=== PATIENT | male | born 1955 | race Caucasian/White ===

== ENCOUNTER 2017-10-11 12:19 | Inpatient (IN) | payer BC ==
[~2017-10-11] VITALS: Ht 172.7 cm; Wt 70.3 kg
[~2017-10-11 12:19] MED LIST: ALBU17AE3 INH; ALPR0.25 PO; ALPR0.254 PO; IBUP-30 PO; MULT-35 PO; OMEP20CA6 PO; THEO200T20 PO; THEO400T PO; [UNRECOGNIZED DRUG - CODE] PO
[2017-10-11 13:15] LABS: BASOPHILS % (AUTO) 0 % (0-10); EOSINOPHILS % (AUTO) 0 % (0-10); HEMATOCRIT 41 % (40-54); HEMOGLOBIN 14.5 G/DL (13.3-17.7); LYMPHOCYTES # (AUTO) 2.5 X 10^3 (1.0-4.0); LYMPHOCYTES % (AUTO) 15 % (12-44); MEAN CORPUSCULAR HEMOGLOBIN 34 PG (25-34); MEAN CORPUSCULAR HGB CONC 35 G/DL (32-36); MEAN CORPUSCULAR VOLUME 95 FL (80-99); MEAN PLATELET VOLUME 10.1 FL (7.4-10.4); MONOCYTES # (AUTO) 1.2 X 10^3 (0.0-1.0); MONOCYTES % (AUTO) 7 % (0-12); NEUTROPHILS # (AUTO) 13.3 X 10^3 (1.8-7.8); NEUTROPHILS % (AUTO) 78 % (42-75); PLATELET COUNT 341 10^3/uL (130-400); RED BLOOD COUNT 4.33 10^6/uL (4.35-5.85); RED CELL DISTRIBUTION WIDTH 12.6 % (10.0-14.5); WHITE BLOOD COUNT 17.1 10^3/uL (4.3-11.0)
[2017-10-11] MEDS ORDERED: methylPREDNISolone 125 MG (Solu-MEDROL) VIAL IM ONE (13:15)
[2017-10-11] MEDS ORDERED: RT-ALBUTEROL/IPRATROPIUM 3 ML (DUONEB) VIAL INH ONE ×3 (13:15→14:00)
--- NOTE | 2017-10-11 13:21 | ED Respiratory ---
General Chief Complaint: Respiratory Problems Stated Complaint: SOA Nursing Triage Note: AMB TO ROOM [facility] . REPORTS HAS NOT FELT WELL SINCE THE FIRST OF THE MONTH. DX WITH FLU. LAST WEEKS HAS BEEN SOA Source: patient Exam Limitations: no limitations History of Present Illness Date Seen by Provider: Oct 11, 2017 Time Seen by Provider: 13:21 Allergies and Home Medications Allergies Coded Allergies: No Known Drug Allergies (Unverified , 02/02/09) Home Medications Albuterol 17 Gm Inh, 2 PUFF INH Q6H PRN for SHORTNESS OF BREATH, (Reported) Alprazolam 0.25 Mg Tablet, 0.5 MG PO DAILY, (Reported) TAKES 2 (0.25MG) TABLETS Alprazolam 0.25 Mg Tablet, 0.25 MG PO DAILY PRN for ANXIETY, (Reported) Ibuprofen 200 Mg Tablet, 400 MG PO TID PRN for PAIN, (Reported) TAKES 2 (200MG) TABLETS Multivitamin 1 Each Tablet, 1 TAB PO DAILY, (Reported) Omeprazole 20 Mg Capsule.dr, 20 MG PO HS, (Reported) Theophylline Anhydrous 200 Mg Tab.er.12h, 200 MG PO DAILY, (Reported) Theophylline Anhydrous 200 Mg Tab.er.12h, 600 MG PO HS, (Reported) TAKES 3 (200MG) TABLETS Past Foacnwp-Rhpuiy-Qkvzym Hx Patient Social History Alcohol Use: Regular Use Alcohol Beverage of Choice: Beer Recreational Drug Use: No Smoking Status: Current Everyday Smoker Recent Foreign Travel: No Contact w/Someone Who Travel: No Recent Infectious Disease Expo: No Recent Hopitalizations: No ([facility] FOR BLADDER [place] 2002. 2003 BLOCKAGE) Immunizations Up To Date Tetanus Booster (TDap): Unknown Date of Pneumonia Vaccine: Aug 15, 2005 Date of Influenza Vaccine: May 15, 2015 Surgeries History of Surgeries: Yes (BLADDER REMOVED, NEOBLADDER/ POUCH; JAW FX/REPAIR; BOWEL OBSTRUCTION SURGERY) Surgeries: Abdominal, Bladder Surgery, Vasectomy Respiratory History of Respiratory Disorde: Yes Respiratory Disorders: Asthma, COPD Cardiovascular History of Cardiac Disorders: No Cardiac Disorders: Hypertension Neurological History of Neurological Disord: No Reproductive System Hx Reproductive Disorders: No Gastrointestinal History of Gastrointestinal Di: Yes Gastrointestinal Disorders: Gastroesophageal Reflux, Obstructive Bowel Musculoskeletal History of Musculoskeletal Dis: No Endocrine History of Endocrine Disorders: No HEENT HEENT Disorders: Cataract Cancer History of Cancer: No Psychosocial History of Psychiatric Problem: Yes Behavioral Health Disorders: Anxiety Integumentary History of Skin or Integumenta: No Blood Transfusions History of Blood Disorders: No Family Medical History Family Medial History: Cervical cancer G8 SISTER FH: abdominal aortic aneurysm 19 FATHER FH: pancreatic cancer 19 MOTHER Physical Exam Vital Signs Vital Signs - First Documented 10/11/17 12:19 Temp 96.7 Pulse 96 Resp 24 B/P (MAP) 168/95 (119) Pulse Ox 90 O2 Delivery Room Air Capillary Refill : Less Than 3 Seconds Progress/Results/Core Measures Suspected Sepsis Recent Fever Within 48 Hours: No Infection Criteria Present: Suspected New Infection New/Unexplained Altered Menta: No Sepsis Screen: Possible Sepsis Risk Sepsis Diagnosis: SIRS Temperature:96.7 Pulse: 96 Respiratory Rate: 24 Laboratory Tests 10/11/17 12:35: White Blood Count 17.1H Blood Pressure 168 /95 Mean: 119 Laboratory Tests 10/11/17 12:35: Platelet Count 341 Results/Orders Lab Results Laboratory Tests Test 10/11/17 12:35 Range/Units White Blood Count 17.1 H 4.3-11.0 10^3/uL Red Blood Count 4.33 L 4.35-5.85 10^6/uL Hemoglobin 14.5 13.3-17.7 G/DL Hematocrit 41 40-54 % Mean Corpuscular Volume 95 80-99 FL Mean Corpuscular Hemoglobin 34 25-34 PG Mean Corpuscular Hemoglobin Concent 35 32-36 G/DL Red Cell Distribution Width 12.6 10.0-14.5 % Platelet Count 341 130-400 10^3/uL Mean Platelet Volume 10.1 7.4-10.4 FL Neutrophils (%) (Auto) 78 H 42-75 % Lymphocytes (%) (Auto) 15 12-44 % Monocytes (%) (Auto) 7 0-12 % Eosinophils (%) (Auto) 0 0-10 % Basophils (%) (Auto) 0 0-10 % Neutrophils # (Auto) 13.3 H 1.8-7.8 X 10^3 Lymphocytes # (Auto) 2.5 1.0-4.0 X 10^3 Monocytes # (Auto) 1.2 H 0.0-1.0 X 10^3 Eosinophils # (Auto) 0.0 0.0-0.3 10^3/uL Basophils # (Auto) 0.0 0.0-0.1 10^3/uL My Orders Orders - SHAR MERCADO Saline Lock/Iv-Start (10/11/17 13:05) Ekg Tracing (10/11/17 13:05) O2 (10/11/17 13:05) Cbc With Automated Diff (10/11/17 13:05) Comprehensive Metabolic Panel (10/11/17 13:05) Troponin I (10/11/17 13:05) Chest 1 View, Ap/Pa Only (10/11/17 13:05) Albuterol/Ipra Inhalation Soln (Duoneb I (10/11/17 13:15) Svn Sm Volume Nebulizer Rt-Rfs (10/11/17 13:05) Methylprednisolone Sod Succ (Solu-Medrol (10/11/17 13:15) Manual Differential (10/11/17 12:35) Vital Signs/I&O Vital Sign - Last 12Hours 10/11/17 12:19 Temp 96.7 Pulse 96 Resp 24 B/P (MAP) 168/95 (119) Pulse Ox 90 O2 Delivery Room Air Capillary Refill : Less Than 3 Seconds Blood Pressure Mean: 119 Departure Departure-Patient Inst. Referrals: DARWIN BLANC MD (PCP/Family) Primary Care Physician SHAR MERCADO Oct 11, 2017 13:21
[2017-10-11 13:26] LABS: ALANINE AMINOTRANSFERASE 26 U/L (0-55); ALBUMIN 3.9 GM/DL (3.2-4.5); ALKALINE PHOSPHATASE 78 U/L (40-136); BILIRUBIN,TOTAL 0.4 MG/DL (0.1-1.0); BUN/CREATININE RATIO 10; CALCIUM 9.8 MG/DL (8.5-10.1); CARBON DIOXIDE 24 MMOL/L (21-32); CHLORIDE 101 MMOL/L (98-107); CREATININE SERUM 0.63 MG/DL (0.60-1.30); GFR ESTIMATED > 60; GLUCOSE 108 MG/DL (70-105); POTASSIUM 3.8 MMOL/L (3.6-5.0); SODIUM 137 MMOL/L (135-145); TOTAL PROTEIN 7.5 GM/DL (6.4-8.2)
--- NOTE | 2017-10-11 13:40 | Diagnostic Imaging Report ---
INDICATION: Difficulty breathing. COMPARISON: 02/02/2009. FINDINGS: A single frontal radiographic view of the chest was obtained and demonstrates a normal cardiac silhouette and pulmonary vasculature. The lungs are hyperinflated with flattening of the hemidiaphragms. There are patchy alveolar opacities within the left lower lung field, concerning for infiltrate. The right lung is relatively clear. No large effusion or pneumothorax is seen on either side. The bony structures show no gross acute abnormalities. IMPRESSION: 1. Findings concerning for patchy alveolar infiltrate in the left lower lung field. 2. Background of COPD. Dictated by: Dictated on workstation # [id number]
[2017-10-11 13:54] LABS: BAND NEUTROPHILS 3 %; NEUTROPHILS % (MANUAL) 79 %
[2017-10-11] MEDS ORDERED: cefTRIAXone 1 GM (ROCEPHIN) VIAL IV STA (13:54)
[2017-10-11] MEDS ORDERED: NS IV 1000 ML 1,000 ML IV ONE (13:54)
[2017-10-11 13:55] LABS: BASOPHILS % (MANUAL) 0 %; EOSINOPHILS % (MANUAL) 0 %; LYMPHOCYTES % (MANUAL) 12 %; MONOCYTES % (MANUAL) 6 %; RBC MORPH NORMAL
[2017-10-11] MEDS ORDERED: methylPREDNISolone 125 MG (Solu-MEDROL) VIAL IVP ONE (14:00)
[2017-10-11] MEDS ORDERED: NS (IVPB) 50 ML ONE (14:06)
[2017-10-11 15:00] LABS: PROTHROMBIN TIME PATIENT 13.2 SEC (12.2-14.7)
[2017-10-11 15:25] LABS: TSH (THYROID ANALYZER) 3.27 UIU/ML (0.35-4.94)
[2017-10-11] MEDS ORDERED: RT-ALBUTEROL SULF 2.5 MG/3 ML PRE-MIX VIAL INH STA (15:30)
[2017-10-11 16:56] VITALS: BP 170/85
[2017-10-11] MEDS ORDERED: IBUPROFEN 800 MG (MOTRIN) TAB PO PRN (17:30)
[2017-10-11] MEDS ORDERED: CATHETER FLUSH 10 ML SYR IV PRN (17:30)
[2017-10-11] MEDS ORDERED: ONDANSETRON 4 MG/2 ML (SDV) Z0FRAN IV PRN (17:30)
[2017-10-11] MEDS ORDERED: ACETAMINOPHEN 500 MG TAB (TYLENOL) PO PRN (17:30)
[2017-10-11] MEDS ORDERED: THEO400T PO ×2 (17:47)
[2017-10-11] MEDS ORDERED: OMEP20CA12 PO (17:47)
[2017-10-11] MEDS ORDERED: ALBU18HF2 IH (17:47)
[2017-10-11] MEDS: NS IV 1000 ML 1,000 ML IV SCH (18:29)
[2017-10-11] MEDS: CEFEPIME 2 GM/NS 50 ML IVPB IV SCH ×2 (18:29)
[2017-10-11] MEDS ORDERED: INFLUENZA TRIvalent 2017-2018 0.5 ML/45 MCG SYR IM ONE (18:45)
[2017-10-11 19:20] VITALS: BP 173/89
[2017-10-11 21:06] VITALS: BP 170/85
[2017-10-11] MEDS ORDERED: RT-ALBUTEROL/IPRATROPIUM 3 ML (DUONEB) VIAL INH PRN (21:45)
[2017-10-11] MEDS: RT-ALBUTEROL/IPRATROPIUM 3 ML (DUONEB) VIAL INH SCH (22:26)
[2017-10-12 00:03] VITALS: BP 161/81
[2017-10-12] MEDS: BENZONATATE 100 MG (TESSALON) CAPSULE PO PRN ×2 (00:14→20:56)
[2017-10-12] MEDS: NS IV 1000 ML 1,000 ML IV SCH ×4 (01:18→20:44)
[2017-10-12] MEDS: RT-ALBUTEROL/IPRATROPIUM 3 ML (DUONEB) VIAL INH SCH ×6 (02:25→21:47)
[2017-10-12 03:16] VITALS: BP 166/79
[2017-10-12] MEDS: CEFEPIME 2 GM/NS 50 ML IVPB IV SCH ×2 (05:08)
[2017-10-12 06:20] LABS: BASOPHILS % (AUTO) 0 % (0-10); EOSINOPHILS % (AUTO) 0 % (0-10); HEMATOCRIT 36 % (40-54); HEMOGLOBIN 12.5 G/DL (13.3-17.7); LYMPHOCYTES # (AUTO) 2.2 X 10^3 (1.0-4.0); LYMPHOCYTES % (AUTO) 14 % (12-44); MEAN CORPUSCULAR HEMOGLOBIN 33 PG (25-34); MEAN CORPUSCULAR HGB CONC 35 G/DL (32-36); MEAN CORPUSCULAR VOLUME 97 FL (80-99); MEAN PLATELET VOLUME 9.8 FL (7.4-10.4); MONOCYTES % (AUTO) 6 % (0-12); NEUTROPHILS # (AUTO) 12.5 X 10^3 (1.8-7.8); NEUTROPHILS % (AUTO) 79 % (42-75); PLATELET COUNT 304 10^3/uL (130-400); RED BLOOD COUNT 3.74 10^6/uL (4.35-5.85); RED CELL DISTRIBUTION WIDTH 12.7 % (10.0-14.5); WHITE BLOOD COUNT 15.7 10^3/uL (4.3-11.0)
[2017-10-12 06:39] LABS: ALANINE AMINOTRANSFERASE 20 U/L (0-55); ALBUMIN 3.3 GM/DL (3.2-4.5); ALKALINE PHOSPHATASE 65 U/L (40-136); BILIRUBIN,TOTAL 0.3 MG/DL (0.1-1.0); BUN/CREATININE RATIO 15; CALCIUM 8.8 MG/DL (8.5-10.1); CARBON DIOXIDE 22 MMOL/L (21-32); CHLORIDE 107 MMOL/L (98-107); CREATININE SERUM 0.59 MG/DL (0.60-1.30); GFR ESTIMATED > 60; GLUCOSE 97 MG/DL (70-105); POTASSIUM 3.5 MMOL/L (3.6-5.0); SODIUM 140 MMOL/L (135-145)
[2017-10-12 08:00] VITALS: BP 153/84
[2017-10-12] MEDS ORDERED: ALPRAZolam 0.25 MG (XANAX) TAB PO PRN (09:15)
[2017-10-12] MEDS: CEFEPIME 2 GM/NS 100 ML IVPB IV SCH ×4 (09:41→20:44)
--- NOTE | 2017-10-12 09:43 | Diagnostic Imaging Report ---
INDICATION: Followup left lower lobe pneumonia. Time of exam 8:40 AM Correlation is made with prior study one day earlier. The heart size is stable. There has been improved aeration to the left lung base when compared with yesterday's study consistent with clearing infiltrate. Hyperinflation consistent with COPD is again noted. Pulmonary vascularity is unremarkable. No new infiltrate is identified. There is no effusion or pneumothorax. IMPRESSION: 1. COPD. 2. Improving left basilar pneumonia when compared with examination one day earlier. Dictated by: Dictated on workstation # [id number]
[2017-10-12] MEDS ORDERED: THEOPHYLLINE 200 MG PO SCH (10:38)
--- NOTE | 2017-10-12 11:23 | History & Physicial (CHS) ---
NELA NORMAN MED STUDENT 10/12/17 11:23am: HPI History of Present Illness: CC: shortness of breath HPI: Mr. Robertson presented to the hospital yesterday with severe shortness of breath. He had influenza at the beginning of September and has had a dry cough since that time. He has COPD and asthma and reports an asthma attack at home 2 nights ago with severe dyspnea, he went to his PCP on 10/11 and was sent to the ER where he was admitted for pneumonia. He states he has been unable to catch his breath and is still feeling short of breath with oxygen therapy. He denies any fever or chills, malaise or weakness, N/V, diarrhea or constipation. He endorses a headache that he attributes to his cough. He has no other concerns at this time. Source: patient Exam Limitations: no limitations Date seen by provider: Oct 12, 2017 Time Seen by Provider: 11:02 Attending Physician Nabila Pineda MD PCP Carlito Hoffman MD Consult Date of Admission Oct 11, 2017 at 16:08 Home Medications Home Medications Reviewed patient Home Medication Reconciliation Form Allergies Coded Allergies: No Known Drug Allergies (Unverified , 02/02/09) SCP-Ejssrd-Xsoiqy Hx Patient Social History Marrital Status: Number of Children: 3 Number of living children: 3 Employed/Student: employed Alcohol Use: Regular Use (drinks a 12 pack of beer/day) Recreational Drug Use: No Smoking Status: Current Everyday Smoker Cigaretts per day: 30 Type Used: Cigarettes Recent Foreign Travel: No Contact w/other who traveled: No Recent Hopitalizations: No ([facility] [place] 2002. 2003 BLOCKAGE) Recent Infectious Disease Expo: No Physical Abuse Screen: No Sexual Abuse: No Immunizations Up To Date Tetanus Booster (TDap): Unknown Date of Pneumonia Vaccine: Aug 15, 2005 Date of Influenza Vaccine: May 15, 2015 Past Medical History Bladder cancer COPD Asthma Anxiety GERD Family Medical History Significant Family History: AAA (father), Cancer (Mother pancreatic cancer), COPD Family History: Cervical cancer G8 SISTER FH: abdominal aortic aneurysm 19 FATHER FH: pancreatic cancer 19 MOTHER Review of Systems ([facility]) Constitutional: No chills, No dizziness, No fever, No malaise, No weakness EENTM: No nose congestion, No throat pain Respiratory: see HPI, cough, dyspnea on exertion, short of breath Cardiovascular: No chest pain, No palpitations Gastrointestinal: No abdominal pain, No constipation, No diarrhea, No nausea, No vomiting Genitourinary: no symptoms reported Musculoskeletal: back pain Skin: no symptoms reported Psychiatric/Neurological: Anxiety Reviewed Test Results Reviewed Test Results Lab Laboratory Tests 10/11/17 12:35 10/12/17 05:32 Laboratory Tests 10/11/17 12:35: White Blood Count 17.1H, Red Blood Count 4.33L, Neutrophils (%) (Auto) 78H, Neutrophils # (Auto) 13.3H, Monocytes # (Auto) 1.2H, Blood Urea Nitrogen 6L, Glucose Level 108H 10/11/17 14:41: 10/12/17 05:32: White Blood Count 15.7H, Red Blood Count 3.74L, Neutrophils (%) (Auto) 79H, Neutrophils # (Auto) 12.5H, Hemoglobin 12.5L, Hematocrit 36L, Potassium Level 3.5L, Creatinine 0.59L, Total Protein 6.0L Sputum culture: probable Haemophilus Radiology CXR 10/12 @0840 IMPRESSION: 1. COPD. 2. Improving left basilar pneumonia when compared with examination one day earlier. CXR 10/11 @13:24 IMPRESSION: 1. Findings concerning for patchy alveolar infiltrate in the left lower lung field. 2. Background of COPD Physical Exam-([facility]) Physical Exam Vital Signs VS - Last 72 Hours, by Label 10/11/17 10/11/17 10/11/17 10/11/17 12:19 12:19 13:37 13:52 Temp 96.7 Pulse 96 Resp 24 B/P (MAP) 168/95 (119) Pulse Ox 90 93 93 O2 Delivery Nasal Cannula Room Air Nasal Cannula Nasal Cannula O2 Flow Rate 2.00 2.00 2.00 10/11/17 10/11/17 10/11/17 10/11/17 15:40 16:44 16:56 17:15 Temp 98.4 Pulse 112 104 Resp 22 20 B/P (MAP) 160/97 170/85 (113) Pulse Ox 92 93 94 93 O2 Delivery Nasal Cannula Nasal Cannula Nasal Cannula Nasal Cannula O2 Flow Rate 2.00 2.00 3.50 2.00 10/11/17 10/11/17 10/11/17 10/11/17 19:00 19:20 20:25 21:06 Temp 98.5 Pulse 107 107 104 Resp 18 B/P (MAP) 173/89 (117) Pulse Ox 95 93 93 O2 Delivery Nasal Cannula Nasal Cannula O2 Flow Rate 3.50 3.50 FiO2 28 10/11/17 10/12/17 10/12/17 10/12/17 22:27 00:03 01:00 02:25 Temp 98.6 Pulse 100 91 Resp 22 B/P (MAP) 161/81 (107) Pulse Ox 92 93 93 O2 Delivery Nasal Cannula Nasal Cannula Nasal Cannula O2 Flow Rate 3.50 3.50 3.50 10/12/17 10/12/17 10/12/17 10/12/17 03:16 04:49 06:49 07:00 Temp 99.0 Pulse 98 108 Resp 22 B/P (MAP) 166/79 (108) Pulse Ox 93 94 93 O2 Delivery Nasal Cannula Nasal Cannula Nasal Cannula O2 Flow Rate 3.50 3.50 3.00 10/12/17 10/12/17 10/12/17 10/12/17 08:00 08:00 10:56 12:00 Temp 99.0 99.4 Pulse 96 104 Resp 22 24 B/P (MAP) 153/84 (107) 178/79 (112) Pulse Ox 94 94 93 94 O2 Delivery Nasal Cannula Nasal Cannula Nasal Cannula Nasal Cannula O2 Flow Rate 3.50 3.50 3.00 3.50 Capillary Refill : Less Than 3 Seconds General Appearance: WD/WN, no apparent distress HEENT: pharynx normal Neck: normal inspection Respiratory: respiratory distress (increased work of breathing), decreased breath sounds, wheezing Cardiovascular: regular rate, rhythm, no edema Gastrointestinal: normal bowel sounds, non tender, soft Rectal: deferred Back: normal inspection Extremities: normal inspection, no pedal edema Neurologic/Psychiatric: alert, normal mood/affect Skin: normal color, warm/dry Clinical Quality Measures DVT/VTE Risk/Contraindication: Risk Factor Score Per Nursin RFS Level Per Nursing on Admit: 4+=Very High Assessment/Plan Assessment/Plan Admission Dx Haemophilus influenzae pneumonia, asthma exacerbation Admission Status: Inpatient Order (span 2 midnights) Assessment & Plan 1. Haemophilus influenzae pneumonia -Tmax 99.4 10/11, WBC 17.1 on admission 10/11 --> 15.7 on 10/12 -cefepime 2g q12h -Tessamuel Stapleton anti-tussive 2. COPD/asthma exacerbation -RT protocol, Duoneb q4h and q2h PRN, wean O2 as tolerated -continue home theophylline 200mg morning dose, 600mg evening -add Solumedrol 125mg q6h 3. Elevated blood pressure -blood pressure has been consistently elevated with SBP 160-170's, DBP 80's- 90's -start antihypertensive therapy 4. Heavy alcohol use -monitor for withdrawal symptoms 5. GERD -continue home pantoprazole 20mg qday 6. Anxiety -continue home alprazolam 0.5mg qday 7. Back pain -ibuprofen 800mg q8h PRN NABILA PINEDA MD 10/12/17 3:45pm: Home Medications Allergies Coded Allergies: No Known Drug Allergies (Unverified , 02/02/09) Physical Exam-([facility]) Physical Exam Vital Signs VS - Last 72 Hours, by Label 10/11/17 10/11/17 10/11/17 10/11/17 12:19 12:19 13:37 13:52 Temp 96.7 Pulse 96 Resp 24 B/P (MAP) 168/95 (119) Pulse Ox 90 93 93 O2 Delivery Nasal Cannula Room Air Nasal Cannula Nasal Cannula O2 Flow Rate 2.00 2.00 2.00 10/11/17 10/11/17 10/11/17 10/11/17 15:40 16:44 16:56 17:15 Temp 98.4 Pulse 112 104 Resp 22 20 B/P (MAP) 160/97 170/85 (113) Pulse Ox 92 93 94 93 O2 Delivery Nasal Cannula Nasal Cannula Nasal Cannula Nasal Cannula O2 Flow Rate 2.00 2.00 3.50 2.00 10/11/17 10/11/17 10/11/17 10/11/17 19:00 19:20 20:25 21:06 Temp 98.5 Pulse 107 107 104 Resp 18 B/P (MAP) 173/89 (117) Pulse Ox 95 93 93 O2 Delivery Nasal Cannula Nasal Cannula O2 Flow Rate 3.50 3.50 FiO2 28 10/11/17 10/12/17 10/12/17 10/12/17 22:27 00:03 01:00 02:25 Temp 98.6 Pulse 100 91 Resp 22 B/P (MAP) 161/81 (107) Pulse Ox 92 93 93 O2 Delivery Nasal Cannula Nasal Cannula Nasal Cannula O2 Flow Rate 3.50 3.50 3.50 10/12/17 10/12/17 10/12/17 10/12/17 03:16 04:49 06:49 07:00 Temp 99.0 Pulse 98 108 Resp 22 B/P (MAP) 166/79 (108) Pulse Ox 93 94 93 O2 Delivery Nasal Cannula Nasal Cannula Nasal Cannula O2 Flow Rate 3.50 3.50 3.00 10/12/17 10/12/17 10/12/17 10/12/17 08:00 08:00 10:56 12:00 Temp 99.0 99.4 Pulse 96 104 Resp 22 24 B/P (MAP) 153/84 (107) 178/79 (112) Pulse Ox 94 94 93 94 O2 Delivery Nasal Cannula Nasal Cannula Nasal Cannula Nasal Cannula O2 Flow Rate 3.50 3.50 3.00 3.50 10/12/17 10/12/17 13:00 15:23 Pulse 89 Pulse Ox 93 O2 Delivery Nasal Cannula O2 Flow Rate 3.00 General Appearance: WD/WN, moderate distress Respiratory: decreased breath sounds, accessory muscle use, wheezing Cardiovascular: regular rate, rhythm, no edema Gastrointestinal: normal bowel sounds, non tender, soft Extremities: no pedal edema Neurologic/Psychiatric: alert, normal mood/affect Skin: normal color, warm/dry Assessment/Plan Assessment/Plan Admission Status: Inpatient Order (span 2 midnights) Reason for Inpatient Admission: Patient with pneumonia and COPD/asthma exacerbation with marked increased work of breathing and requiring supplemental oxygen, will require 2 or more nights inpatient. (1) Asthma exacerbation Status: Acute Qualifiers: Qualified Codes: J45.901 - Unspecified asthma with (acute) exacerbation (2) Pneumonia Status: Acute Qualifiers: Qualified Codes: J14 - Pneumonia due to hemophilus influenzae (3) Hypertension Status: Chronic Qualifiers: Qualified Codes: I10 - Essential (primary) hypertension (4) Heavy alcohol use Status: Chronic (5) DVT prophylaxis Status: Acute Assessment & Plan: SCDs, enoxaparin Supervisory-Addendum Brief Supervisory Addendum Patient seen and examined with MS3 Nela Norman, agree with documentation unless otherwise noted. NELA NORMAN MED STUDENT Oct 12, 2017 11:23 am NABILA PINEDA MD Oct 12, 2017 3:45 pm
[2017-10-12] MEDS: methylPREDNISolone 125 MG (Solu-MEDROL) VIAL IVP SCH ×3 (11:45→23:42)
[2017-10-12 12:00] VITALS: BP 178/79
[2017-10-12] MEDS ORDERED: D5 1/2 NS 1000 ML IV SOLUTION 1,000 ML IV PRN (15:45)
[2017-10-12] MEDS ORDERED: LORazepam 1 MG (ATIVAN) TAB PO PRN (15:45)
[2017-10-12] MEDS ORDERED: LORazepam INJ 2 MG/ML (ATIVAN) VIAL IM/IV PRN (15:45)
[2017-10-12 16:00] VITALS: BP 174/80
[2017-10-12] MEDS: ENOXAPARIN 40 MG/0.4 ML (LOVENOX) SYR SC SCH (16:11)
[2017-10-12] MEDS: HYDROCHLOROTHIAZIDE 25 MG (HCTZ) TAB PO SCH (16:11)
[2017-10-12] MEDS ORDERED: THEOPHYLLINE CR 300 MG (THEO-DUR) TAB PO SCH (17:00)
[2017-10-12] MEDS ORDERED: PATIENT MAY USE OWN MED,SINGLE MED PO SCH (17:30)
[2017-10-12] MEDS: THEOPHYLLINE 400 MG PO SCH (17:38)
[2017-10-12] MEDS: PANTOPRAZOLE 20 MG TABLET (PROTONIX) PO SCH (17:38)
[2017-10-12 20:00] VITALS: BP 167/80
[2017-10-12] MEDS: MAGNESIUM OXIDE (MAG-OX)400 MG TAB PO SCH (20:44)
[2017-10-13] VITALS (7 sets, daily range): BP systolic 159–173; BP diastolic 78–99
[2017-10-13] MEDS: RT-ALBUTEROL/IPRATROPIUM 3 ML (DUONEB) VIAL INH SCH ×6 (01:13→21:39)
[2017-10-13] MEDS: NS IV 1000 ML 1,000 ML IV SCH ×4 (04:28→21:05)
[2017-10-13 05:57] LABS: HEMOGLOBIN 13.1 G/DL (13.3-17.7); MEAN PLATELET VOLUME 9.3 FL (7.4-10.4); RED BLOOD COUNT 3.95 10^6/uL (4.35-5.85); RED CELL DISTRIBUTION WIDTH 12.7 % (10.0-14.5); WHITE BLOOD COUNT 13.8 10^3/uL (4.3-11.0)
[2017-10-13 06:30] LABS: BUN/CREATININE RATIO 13; CARBON DIOXIDE 22 MMOL/L (21-32); CHLORIDE 102 MMOL/L (98-107); CREATININE SERUM 0.61 MG/DL (0.60-1.30); POTASSIUM 3.5 MMOL/L (3.6-5.0); SODIUM 138 MMOL/L (135-145)
[2017-10-13 06:31] LABS: CALCIUM 8.7 MG/DL (8.5-10.1); GFR ESTIMATED > 60; GLUCOSE 172 MG/DL (70-105)
[2017-10-13] MEDS: THIAMINE 100 MG (VITAMIN B-1) TAB PO SCH (06:36)
[2017-10-13] MEDS: methylPREDNISolone 125 MG (Solu-MEDROL) VIAL IVP SCH (06:36)
[2017-10-13] MEDS: MULTIVIT W/MINERALS TAB (THERAGRAN M) PO SCH (06:36)
[2017-10-13] MEDS ORDERED: KCL 20 MEQ TAB (K-DUR) PO NR (06:45)
[2017-10-13] MEDS: CEFEPIME 2 GM/NS 100 ML IVPB IV SCH ×4 (07:51→21:05)
[2017-10-13] MEDS: FOLIC ACID 1 MG TAB PO SCH (07:52)
[2017-10-13] MEDS: ALPRAZolam 0.25 MG (XANAX) TAB PO SCH (07:52)
[2017-10-13] MEDS: HYDROCHLOROTHIAZIDE 25 MG (HCTZ) TAB PO SCH (07:52)
[2017-10-13] MEDS: MAGNESIUM OXIDE (MAG-OX)400 MG TAB PO SCH ×2 (07:52→21:05)
[2017-10-13] MEDS: THEOPHYLLINE 400 MG PO SCH ×2 (08:45→16:10)
--- NOTE | 2017-10-13 11:00 | Progress Note (SOAP) ---
NELA NORMAN MED STUDENT 10/13/17 1100: Subjective Subjective/Events-last exam Patient reports that he is still experiencing shortness of breath and has continued to require supplemental O2 via NC. He continues to have a cough, it has become productive. His nurse reports that he has had some increased anxiety and thinks that is contributing to his elevated blood pressure readings. He wants to go home, and has no other concerns this morning. Review of Systems Date Seen by Provider: Oct 13, 2017 Time Seen by Provider: 10:02 General: No Chills, No Fatigue, No Malaise HEENT: Head Aches (when coughing), No Sore Throat Pulmonary: Dyspnea, Cough Cardiovascular: No: Chest Pain, Palpitations, Edema Gastrointestinal: No: Nausea, Vomiting, Diarrhea, Constipation Genitourinary: No Dysuria Musculoskeletal: No: back pain Neurological: No: Weakness Objective Exam Last Set of Vital Signs Vital Signs Date Time Temp Pulse Resp B/P (MAP) Pulse Ox O2 Delivery O2 Flow Rate FiO2 10/13/17 09:19 92 Nasal Cannula 5.00 10/13/17 08:00 98.4 104 24 170/85 (113) 10/11/17 21:06 28 Capillary Refill : Less Than 3 Seconds I&O Intake and Output 10/13/17 00:00 Intake Total 7330 ml Output Total 1450 ml Balance 5880 ml Intake Oral 3380 ml IV Total 3950 ml Output Urine Total 1450 ml # Voids 5 # Bowel Movements 2 General: Alert, Oriented X3, No Acute Distress HEENT: Atraumatic Lungs: Other (decreased air movement especially at bases, wheezes throughout) Heart: Regular Rate Abdomen: Normal Bowel Sounds, Soft, No Tenderness Extremities: No Clubbing, No Cyanosis, No Edema Skin: No Rashes Neuro: Normal Speech Psych/Mental Status: Mental Status NL, Mood NL Results/Procedures Lab Laboratory Tests 10/13/17 05:35: White Blood Count 13.8H, Red Blood Count 3.95L, Hemoglobin 13.1L, Hematocrit 38L , Mean Corpuscular Volume 97, Mean Corpuscular Hemoglobin 33, Mean Corpuscular Hemoglobin Concent 34, Red Cell Distribution Width 12.7, Platelet Count 313, Mean Platelet Volume 9.3, Sodium Level 138, Potassium Level 3.5L, Chloride Level 102, Carbon Dioxide Level 22, Anion Gap 14, Blood Urea Nitrogen 8, Creatinine 0.61, Estimat Glomerular Filtration Rate > 60, BUN/Creatinine Ratio 13, Glucose Level 172H, Calcium Level 8.7 Laboratory Tests 10/13/17 05:35 Microbiology 10/11/17 Blood Culture - Preliminary, Resulted No growth 10/11/17 Gram Stain - Final, Resulted 10/11/17 Sputum Culture - Preliminary, Resulted Haemophilus influenza Radiology CXR 10/12 @0840 IMPRESSION: 1. COPD. 2. Improving left basilar pneumonia when compared with examination one day earlier. CXR 10/11 @13:24 IMPRESSION: 1. Findings concerning for patchy alveolar infiltrate in the left lower lung field. 2. Background of COPD Assessment/Plan Assessment/Plan Admission Dx Haemophilus influenzae pneumonia, COPD/asthma exacerbation Admission Status: Inpatient Order (span 2 midnights) Assessment & Plan 1. Haemophilus influenzae pneumonia -Tmax 99.4 10/11, WBC 17.1 on admission 10/11 --> 15.7 on 10/12 -cefepime 2g q12h -Letty Stapleton anti-tussive 10/13: continues to be afebrile, WBC now 13.8. Continue cefepime and anti- tussives. 2. COPD/asthma exacerbation -RT protocol, Duoneb q4h and q2h PRN, wean O2 as tolerated -continue home theophylline 200mg morning dose, 600mg evening -add Solumedrol 125mg q6h -10/13: decrease Solumedrol to 40mg q6h. Continue to wean O2 as tolerated. 3. Elevated blood pressure -blood pressure has been consistently elevated with SBP 160-170's, DBP 80's- 90's -start HCTZ 25mg -10/13: blood pressure continues to be elevated in the setting of acute illness and anxiety. Continue HCTZ 25mg and continue to monitor. 4. Heavy alcohol use -monitor for withdrawal symptoms 5. GERD -continue home pantoprazole 20mg qday 6. Anxiety -continue home alprazolam 0.5mg qday 7. Back pain -ibuprofen 800mg q8h PRN FEN: heart healthy diet Dispo:continue floor care Clinical Quality Measures DVT/VTE Risk/Contraindication: Risk Factor Score Per Nursin RFS Level Per Nursing on Admit: 4+=Very High NABILA PINEDA MD 10/13/17 1217: Supervisory-Addendum Brief Supervisory Addendum I personally saw and examined this patient and repeated the physical findings and history as noted by MS3 Nela Norman. Agree with documentation unless otherwise noted. NELA NORMAN MED STUDENT Oct 13, 2017 11:00 NABILA PINEDA MD Oct 13, 2017 12:17
[2017-10-13] MEDS: methylPREDNISolone 40 MG/ML (Solu-MEDROL) VIAL IV SCH ×2 (11:52→17:02)
[2017-10-13] MEDS: ENOXAPARIN 40 MG/0.4 ML (LOVENOX) SYR SC SCH (15:14)
[2017-10-13] MEDS: PANTOPRAZOLE 20 MG TABLET (PROTONIX) PO SCH (16:12)
[2017-10-14] MEDS: methylPREDNISolone 40 MG/ML (Solu-MEDROL) VIAL IV SCH ×2 (00:16→05:46)
[2017-10-14 00:47] VITALS: BP 173/80
[2017-10-14] MEDS: RT-ALBUTEROL/IPRATROPIUM 3 ML (DUONEB) VIAL INH SCH ×6 (02:31→22:15)
[2017-10-14 04:04] VITALS: BP 162/81
[2017-10-14 05:23] LABS: HEMOGLOBIN 13.4 G/DL (13.3-17.7); RED BLOOD COUNT 4.05 10^6/uL (4.35-5.85); RED CELL DISTRIBUTION WIDTH 12.8 % (10.0-14.5); WHITE BLOOD COUNT 14.4 10^3/uL (4.3-11.0)
[2017-10-14 05:39] LABS: BUN/CREATININE RATIO 17; CALCIUM 8.6 MG/DL (8.5-10.1); CARBON DIOXIDE 24 MMOL/L (21-32); CHLORIDE 103 MMOL/L (98-107); CREATININE SERUM 0.65 MG/DL (0.60-1.30); GFR ESTIMATED > 60; GLUCOSE 131 MG/DL (70-105); POTASSIUM 3.9 MMOL/L (3.6-5.0); SODIUM 141 MMOL/L (135-145)
[2017-10-14] MEDS: THIAMINE 100 MG (VITAMIN B-1) TAB PO SCH (05:46)
[2017-10-14] MEDS: MULTIVIT W/MINERALS TAB (THERAGRAN M) PO SCH (05:46)
[2017-10-14] MEDS: THEOPHYLLINE 400 MG PO SCH ×2 (05:47→16:59)
[2017-10-14] MEDS: NS IV 1000 ML 1,000 ML IV SCH ×2 (05:49→06:41)
[2017-10-14 08:00] VITALS: BP 172/81
[2017-10-14] MEDS: FOLIC ACID 1 MG TAB PO SCH (08:05)
[2017-10-14] MEDS: MAGNESIUM OXIDE (MAG-OX)400 MG TAB PO SCH ×2 (08:05→20:24)
[2017-10-14] MEDS: HYDROCHLOROTHIAZIDE 25 MG (HCTZ) TAB PO SCH (08:05)
[2017-10-14] MEDS: CEFEPIME 2 GM/NS 100 ML IVPB IV SCH ×4 (08:05→20:24)
[2017-10-14] MEDS: ALPRAZolam 0.25 MG (XANAX) TAB PO SCH (08:05)
--- NOTE | 2017-10-14 09:53 | Progress Note (SOAP) ---
NELA NORMAN MED STUDENT 10/14/17 0953: Subjective Subjective/Events-last exam Patient reports continued shortness of breath, especially when he is ambulating. He does not use any supplemental oxygen at home, but continues to require 3-5 L NC. Productive cough. He is anxious to go home. Review of Systems Date Seen by Provider: Oct 14, 2017 Time Seen by Provider: 09:40 General: No Chills, No Fatigue, No Malaise HEENT: Head Aches (when coughing), No Sore Throat Pulmonary: Dyspnea, Cough Cardiovascular: No: Chest Pain, Palpitations, Edema, Lt Headedness Gastrointestinal: No: Nausea, Vomiting, Abdominal Pain, Diarrhea, Constipation Genitourinary: No Dysuria Neurological: No: Weakness Objective Exam Last Set of Vital Signs Vital Signs Date Time Temp Pulse Resp B/P (MAP) Pulse Ox O2 Delivery O2 Flow Rate FiO2 10/14/17 08:00 98.3 92 22 172/81 (111) 93 Nasal Cannula 3.50 10/11/17 21:06 28 Capillary Refill : Less Than 3 Seconds I&O Intake and Output 10/14/17 00:00 Intake Total 4822 ml Output Total 3750 ml Balance 1072 ml Intake Oral 1972 ml IV Total 2850 ml Output Urine Total 3750 ml General: Alert, Mild Distress HEENT: Atraumatic Lungs: Other (decreased air movement, wheezing bilaterally) Heart: Regular Rate Abdomen: Normal Bowel Sounds, Soft, No Tenderness Extremities: No Cyanosis, No Edema Neuro: Normal Speech (slightly pressured speech) Psych/Mental Status: Mental Status NL, Mood NL Results/Procedures Lab Laboratory Tests 10/14/17 05:15: White Blood Count 14.4H, Red Blood Count 4.05L, Hemoglobin 13.4, Hematocrit 40, Mean Corpuscular Volume 98, Mean Corpuscular Hemoglobin 33, Mean Corpuscular Hemoglobin Concent 34, Red Cell Distribution Width 12.8, Platelet Count 322, Mean Platelet Volume 9.0, Sodium Level 141, Potassium Level 3.9, Chloride Level 103, Carbon Dioxide Level 24, Anion Gap 14, Blood Urea Nitrogen 11, Creatinine 0.65, Estimat Glomerular Filtration Rate > 60, BUN/Creatinine Ratio 17, Glucose Level 131H, Calcium Level 8.6 Laboratory Tests 10/14/17 05:15 Microbiology 10/11/17 Blood Culture - Preliminary, Resulted No growth 10/11/17 Gram Stain - Final, Complete 10/11/17 Sputum Culture - Final, Complete Haemophilus influenza Normal carol Presumptive Lisa [facility] Radiology CXR 10/12 @0840 IMPRESSION: 1. COPD. 2. Improving left basilar pneumonia when compared with examination one day earlier. CXR 10/11 @13:24 IMPRESSION: 1. Findings concerning for patchy alveolar infiltrate in the left lower lung field. 2. Background of COPD Assessment/Plan Assessment/Plan Admission Dx Haemophilus influenzae pneumonia, asthma/COPD exacerbation Admission Status: Inpatient Order (span 2 midnights) Assessment & Plan 1. Haemophilus influenzae pneumonia -Tmax 99.4 10/11, WBC 17.1 on admission 10/11 --> 15.7 on 10/12 -cefepime 2g q12h. Received 1g ceftriaxone in the ER on 10/11 -Letty Stapleton anti-tussive -10/13: continues to be afebrile, WBC now 13.8. Continue cefepime and anti- tussives. -10/14: afebrile, WBC 14.4. Day 4 of Abx, continue cefepime. Anti-tussives PRN. 2. COPD/asthma exacerbation -RT protocol, Duoneb q4h and q2h PRN, wean O2 as tolerated -continue home theophylline 200mg morning dose, 600mg evening -add Solumedrol 125mg q6h -10/13: decrease Solumedrol to 40mg q6h. Continue to wean O2 as tolerated. -10/14: d/c Solumedrol, change to PO prednisone taper 3. Elevated blood pressure -blood pressure has been consistently elevated with SBP 160-170's, DBP 80's- 90's -start HCTZ 25mg -10/13: blood pressure continues to be elevated in the setting of acute illness and anxiety. Continue HCTZ 25mg and continue to monitor. 4. Heavy alcohol use -monitor for withdrawal symptoms 5. GERD -continue home pantoprazole 20mg qday 6. Anxiety -continue home alprazolam 0.5mg qday 7. Back pain -ibuprofen 800mg q8h PRN FEN: heart healthy diet Ppx: Lovenox Dispo:continue floor care Clinical Quality Measures DVT/VTE Risk/Contraindication: Risk Factor Score Per Nursin RFS Level Per Nursing on Admit: 4+=Very High NABILA PINEDA MD 10/14/17 1022: Objective Exam General: Alert, No Acute Distress HEENT: Atraumatic Lungs: Normal Air Movement, Other (wheezing throughout) Heart: Regular Rate, No Murmurs Extremities: No Edema Neuro: Normal Speech Psych/Mental Status: Mental Status NL, Mood NL Supervisory-Addendum Brief Supervisory Addendum Patient seen and examined with MS3 Nela Norman, see my physical exam documentation. Agree with student documentation unless otherwise noted in my documentation. NELA NORMAN MED STUDENT Oct 14, 2017 09:53 NABILA PINEDA MD Oct 14, 2017 10:22
[2017-10-14] MEDS: predniSONE 10 MG TAB PO SCH (10:52)
[2017-10-14 11:56] VITALS: BP 174/85
[2017-10-14] MEDS: ENOXAPARIN 40 MG/0.4 ML (LOVENOX) SYR SC SCH (15:36)
[2017-10-14 16:04] VITALS: BP 156/83
[2017-10-14] MEDS: PANTOPRAZOLE 20 MG TABLET (PROTONIX) PO SCH (16:58)
[2017-10-14 19:45] VITALS: BP 174/85
[2017-10-15] VITALS: BP 148/82
[2017-10-15] MEDS: RT-ALBUTEROL/IPRATROPIUM 3 ML (DUONEB) VIAL INH SCH ×3 (03:35→10:17)
[2017-10-15 04:00] VITALS: BP 168/84
[2017-10-15] MEDS: MULTIVIT W/MINERALS TAB (THERAGRAN M) PO SCH (06:05)
[2017-10-15] MEDS: THEOPHYLLINE 400 MG PO SCH (06:05)
[2017-10-15] MEDS: THIAMINE 100 MG (VITAMIN B-1) TAB PO SCH (06:05)
[2017-10-15 06:08] LABS: HEMOGLOBIN 13.8 G/DL (13.3-17.7); RED BLOOD COUNT 4.12 10^6/uL (4.35-5.85); RED CELL DISTRIBUTION WIDTH 12.7 % (10.0-14.5)
[2017-10-15 08:00] VITALS: BP 153/82
[2017-10-15] MEDS: predniSONE 10 MG TAB PO SCH (08:24)
[2017-10-15] MEDS: MAGNESIUM OXIDE (MAG-OX)400 MG TAB PO SCH (08:24)
[2017-10-15] MEDS: CEFEPIME 2 GM/NS 100 ML IVPB IV SCH ×2 (08:24)
[2017-10-15] MEDS: FOLIC ACID 1 MG TAB PO SCH (08:24)
[2017-10-15] MEDS: ALPRAZolam 0.25 MG (XANAX) TAB PO SCH (08:25)
[2017-10-15] MEDS: HYDROCHLOROTHIAZIDE 25 MG (HCTZ) TAB PO SCH (08:33)
[2017-10-15] MEDS ORDERED: PRD10T PO (11:55)
[2017-10-15] MEDS ORDERED: BENZ-36 PO (11:55)
[2017-10-15] MEDS ORDERED: FOLI1TAB24 PO (11:55)
[2017-10-15] MEDS ORDERED: CEFD300C3 PO (11:55)
[2017-10-15] MEDS ORDERED: MAGN400T6 PO (11:55)
[2017-10-15] MEDS ORDERED: HYDR25TA4 PO (11:55)
--- NOTE | 2017-10-15 11:58 | Discharge Instructions ---
Discharge [facility] Discharge Medications New, Converted or Re-Newed RX: Transmitted to Pharmacy New Medications: Cefdinir (Cefdinir) 300 Mg Capsule 300 MG PO BID for 7 Days, #14 CAP 0 Refills Benzonatate (Benzonatate) 100 Mg Capsule 100 MG PO TID PRN for COUGH, #14 CAP 0 Refills Folic Acid (Folic Acid) 1 Mg Tablet 1 MG PO DAILY, #30 TAB 1 Refill Hydrochlorothiazide (Hydrochlorothiazide) 25 Mg Tablet 25 MG PO DAILY, #30 TAB 1 Refill Magnesium Oxide (Magnesium Oxide) 400 Mg Tablet 400 MG PO BID, #60 TAB 1 Refill Prednisone (Prednisone) 10 Mg Tab 60 MG PO DAILY, #42 TAB 0 Refills Take 6 tabs(60mg)daily, decrease by 1 tab(10mg) every other day. Continued Medications: Albuterol Sulfate (Ventolin Hfa) 18 Gm Hfa.aer.ad 2 PUFF IH Q4H PRN for SHORTNESS OF BREATH Alprazolam (Alprazolam) 0.25 Mg Tablet 0.5 MG PO DAILY TAKES 2 (0.25 MG) TABLETS Alprazolam (Xanax) 0.25 Mg Tablet 0.25 MG PO DAILY PRN for ANXIETY Ibuprofen (Advil) 200 Mg Tablet 400 MG PO DAILY PRN for PAIN TAKES 2 (200 MG) TABLETS Multivitamin (Daily Multiple Vitamin) 1 Each Tablet 1 TAB PO DAILY Omeprazole (Omeprazole) 20 Mg Capsule.dr 20 MG PO 1700 Theophylline Anhydrous (Theophylline) 400 Mg Tablet.er 200 MG PO 0600 TAKES 1/2 OF A (400 MG) TABLET Theophylline Anhydrous (Theophylline) 400 Mg Tablet.er 600 MG PO 1700, TAB TAKES 1 & 1/2 OF A (400 MG) TABLET Patient Instructions Goal/Follow Up Appt: DR BLANC OCTOBER 18 AT 11:40AM. Patient Instructions: PLEASE TAKE ALL MEDICATIONS PRESCRIBED. PLEASE FOLLOW UP WITH YOUR DOCTORS RECOMMENDED. CONTINUE YOUR INHALERS FOR YOUR COPD FOUR TIMES PER DAY AND IF YOU WAKE UP COUGHING. Return to The Hospital For: SHORNTESS OF BREATH, FEVER Activity & Diet Discharge Diet: No Restrictions Activity as Tolerated: Yes Orders-Post D/C & Referrals Pneu Vac Indicated: Yes Copy Copies To 1: DARWIN BLANC MD, JULIE A MD Oct 15, 2017 11:58 am
[2017-10-15 12:00] VITALS: BP 154/84
--- NOTE | 2017-10-15 12:00 | Discharge Summary ---
Diagnosis/Chief Complaint Date of Admission Oct 11, 2017 at 4:08 pm Date of Discharge October 15, 2017 Admission Diagnosis Admission Diagnosis SEE BELOW Discharge Diagnosis 1. Haemophilus influenzae pneumonia -Tmax 99.4 10/11, WBC 17.1 on admission 10/11 --> 15.7 on 10/12 -cefepime 2g q12h. Received 1g ceftriaxone in the ER on 10/11 -Letty Stapleton anti-tussive -10/13: continues to be afebrile, WBC now 13.8. Continue cefepime and anti- tussives. -10/14: afebrile, WBC 14.4. Day 4 of Abx, continue cefepime. Anti-tussives PRN. DISCHARGE: Patient has continued to be afebrile, WBC WNL. Will continue the Omnicef for 7 days as this will complete a 10 day course of abx. 2. COPD/asthma exacerbation -RT protocol, Duoneb q4h and q2h PRN, wean O2 as tolerated -continue home theophylline 200mg morning dose, 600mg evening -add Solumedrol 125mg q6h -10/13: decrease Solumedrol to 40mg q6h. Continue to wean O2 as tolerated. -10/14: d/c Solumedrol, change to PO prednisone taper DISCHARGE: Due to patient's extensive lung disease and continued wheezing on exam today, will go ahead and DC on a prolonged steroid taper for 12 days. We did an O2 qual, and he did not qualify. Updated PFTs should be obtained by his PCP in [facility] coming months. 3. Elevated blood pressure -blood pressure has been consistently elevated with SBP 160-170's, DBP 80's- 90's -start HCTZ 25mg -10/13: blood pressure continues to be elevated in the setting of acute illness and anxiety. Continue HCTZ 25mg and continue to monitor. DISCHARGE: Hctz is helping his BP. However, with [facility] heavy alcohol use, may be better to switch him to a Na-sparing medication such as lisinopril. 4. Heavy alcohol use -monitor for withdrawal symptoms DISCHARGE: Apparently a longstanding issue. Will defer to his PCP to discuss options including ATS. As I was only quickly meeting the patient today, I did not bring this up. 5. GERD -continue home pantoprazole 20mg qday 6. Anxiety -continue home alprazolam 0.5mg qday 7. Back pain -ibuprofen 800mg q8h PRN Chief Complaint/HPI Chief Complaint/HPI HPI: Mr. Robertson presented to the hospital yesterday with severe shortness of breath. He had influenza at the beginning of September and has had a dry cough since that time. He has COPD and asthma and reports an asthma attack at home 2 nights ago with severe dyspnea, he went to his PCP on 10/11 and was sent to the ER where he was admitted for pneumonia. He states he has been unable to catch his breath and is still feeling short of breath with oxygen therapy. He denies any fever or chills, malaise or weakness, N/V, diarrhea or constipation. He endorses a headache that he attributes to his cough. He has no other concerns at this time. Discharge Summary-Simple/Stand Consultations Discharge Physical Examination Allergies: Coded Allergies: No Known Drug Allergies (Unverified , 02/02/09) Vitals & I&Os Vital Sign - Last 12Hours Date Time Temp Pulse Resp B/P (MAP) Pulse Ox O2 Delivery O2 Flow Rate FiO2 10/15/17 10:17 89 Room Air 10/15/17 04:00 97.8 85 24 168/84 (112) 10/15/17 00:00 1.00 10/14/17 14:01 32 Intake and Output 10/15/17 00:00 Intake Total 2500 ml Balance 2500 ml General Appearance: Alert, Oriented X3, Cooperative, No Acute Distress Respiratory: Other (good effort, diffuse wheezing bilaterally) Cardiovascular: Regular Rate, Normal S1, Normal S2, No Murmurs, Gallops, Rubs Abdominal: Normal Bowel Sounds, Soft, No Tenderness, No Hepatosplenomegaly, No Masses Extremities: No Clubbing, No Cyanosis, No Edema Neuro: Normal Speech, Strength at 5/5 X4 Ext, Normal Tone, Cranial Nerves 3-12 NL Psych/Mental Status: Mental Status NL, Mood NL Hospital Course See final discharge diagnosis. Labs Laboratory Tests Test 10/13/17 05:35 10/14/17 05:15 10/15/17 05:58 Range/Units White Blood Count 13.8 H 14.4 H 9.0 4.3-11.0 10^3/uL Red Blood Count 3.95 L 4.05 L 4.12 L 4.35-5.85 10^6/uL Hemoglobin 13.1 L 13.4 13.8 13.3-17.7 G/DL Hematocrit 38 L 40 40 40-54 % Mean Corpuscular Volume 97 98 97 80-99 FL Mean Corpuscular Hemoglobin 33 33 34 25-34 PG Mean Corpuscular Hemoglobin Concent 34 34 34 32-36 G/DL Red Cell Distribution Width 12.7 12.8 12.7 10.0-14.5 % Platelet Count 313 322 285 130-400 10^3/uL Mean Platelet Volume 9.3 9.0 9.0 7.4-10.4 FL Sodium Level 138 141 135-145 MMOL/L Potassium Level 3.5 L 3.9 3.6-5.0 MMOL/L Chloride Level 102 103 98-107 MMOL/L Carbon Dioxide Level 22 24 21-32 MMOL/L Anion Gap 14 14 5-14 MMOL/L Blood Urea Nitrogen 8 11 7-18 MG/DL Creatinine 0.61 0.65 0.60-1.30 MG/DL Estimat Glomerular Filtration Rate > 60 > 60 BUN/Creatinine Ratio 13 17 Glucose Level 172 H 131 H 70-105 MG/DL Calcium Level 8.7 8.6 8.5-10.1 MG/DL Radiology Reviewed CXR 10/12 @0840 IMPRESSION: 1. COPD. 2. Improving left basilar pneumonia when compared with examination one day earlier. CXR 10/11 @13:24 IMPRESSION: 1. Findings concerning for patchy alveolar infiltrate in the left lower lung field. 2. Background of COPD Discharge Instructions to patient/family Please see electronic discharge instructions given to patient. Discharge Medications Reviewed and agree with Discharge Medication list on patient's Discharge Instruction sheet Clinical Quality Measures DVT/VTE Risk/Contraindication: Risk Factor Score Per Nursin RFS Level Per Nursing on Admit: 4+=Very High Copy Copies To 1: DARWIN BLANC MD, JULIE A MD Oct 15, 2017 12:00 pm
[2017-10-15 13:25] VITALS: BP 154/84
== END 2017-10-15 13:25 | disposition home or self-care (01) | DRG 194 ==
LOC: EDUNIT# 12:19 → ER 12:21 → 4TH 16:08
PROVIDERS: ADMIT Family Medicine; ATTEND Family Medicine
DX: J14 Pneumonia due to Hemophilus influenzae (principal); J45.901 Unspecified asthma with (acute) exacerbation; J44.1 Chronic obstructive pulmonary disease with (acute) exacerbation; F17.210 Nicotine dependence, cigarettes, uncomplicated; I10 Essential (primary) hypertension; K21.9 Gastro-esophageal reflux disease without esophagitis; Z72.89 Other problems related to lifestyle; F41.9 Anxiety disorder, unspecified; M54.9 Dorsalgia, unspecified
CPT/HCPCS: 36415; 71045; 71046; 80048; 80053; 83605; 84443; 84484; 85007; 85025; 85027; 85610; 85730; 87040; 87070; 87205; 87804; 93005; 94640; 94760; 94761; 96361; 96365; 96375

== ENCOUNTER → 2019-08-03 | Outpatient (CLI) | payer BC ==
[~2019-08-03] MED LIST changes: +ALBU18HF2 IH; +BENZ-36 PO; +CEFD300C3 PO; +FOLI1TAB24 PO; +HYDR25TA4 PO; +MAGN400T6 PO; +OMEP20CA13 PO; +PRD10T PO; +RT-ALBUTEROL SULF 2.5 MG/3 ML PRE-MIX VIAL INH ONE
== END ==
LOC: RT 09:03
PROVIDERS: ATTEND Internal Medicine
DX: J44.9 Chronic obstructive pulmonary disease, unspecified (principal)
CPT/HCPCS: 94060; 94726; 94729

== ENCOUNTER → 2022-12-01 | Emergency (ER) | payer MEDICARE, MEDICAID ==
[~2022-12-01] VITALS: Ht 172 cm; Wt 72.5 kg
[~2022-12-01] MED LIST changes: +ALPR.25T PO; -ALPR0.254 PO; +EPINEPHrine 0.1 MG/ML 10 ML (HOSPIRA) SYR IJ ONE; -FOLI1TAB24 PO; +FOLI1TAB33 PO; -MAGN400T6 PO; +MGX400T PO; -OMEP20CA13 PO; +OMEP20CA18 PO; -RT-ALBUTEROL SULF 2.5 MG/3 ML PRE-MIX VIAL INH ONE; -THEO200T20 PO; +THP200TCR PO
[2022-12-01 07:03] VITALS: BP 121/100
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
== END ==
LOC: EDUNIT# 07:03 → ER 07:04
DX: I46.9 Cardiac arrest, cause unspecified (principal)
CPT/HCPCS: 99283